=== PATIENT | female | born 1985 | race Caucasian/White ===

== ENCOUNTER 2018-05-17 21:48 | Emergency (ER) | payer MEDICAID ==
[2018-05-18] MEDS ORDERED: LIDOCAINE 1% INJ-PF (10 MG/ML) 30 ML SDV INJ ONE (01:03)
[2018-05-18] MEDS ORDERED: CEPHALEXIN 500 MG CAPSULE PO ONE (01:05)
[2018-05-18] MEDS ORDERED: HYDROCODONE/ACETAMINOPHEN 5-325 MG (6 TAB/ER DISP) PO PRN (01:05)
[2018-05-18] MEDS ORDERED: SULFAMETHOXAZOLE/TRIMETHOPRIM 800-160 MG TABLET PO ONE (01:05)
--- NOTE | 2018-05-18 01:09 | ER Document Report ---
HPI - HPI Time Seen by Provider: 05/18/18 01:03 Pain Level: 5 Notes: Patient is a 32-year-old female with a history of previous staph infections who presents to the emergency department complaining of abscess and possible staph infection to her mid lower back that has been developing over the last 2 days. Patient states that she did try to break it open on her own, but it did not work very well for her. She has noticed increased pain, redness, and swelling over t he last day. Denies drug allergies. No history of MRSA. Denies IV drug abuse or any recent back injections. Patient states that she feels well aside from the pain to the skin of her mid low back. She is eating and drinking without difficulty. She is urinating normally and having normal bowel movements. Denies any headache, fever, neck pain/stiffness, URI, sore throat, chest pain, palpitations, syncope, cough, shortness of breath, wheeze, dyspnea, abdominal pain, nausea/vomiting/diarrhea, urinary retention, dysuria, hematuria, loss of control of bowel or bladder, numbness/tingling, saddle anesthesia, muscle paralysis/weakness. Denies known insect bite. - ROS Systems Reviewed and Negative: Yes All other systems reviewed and negative - REPRODUCTIVE Reproductive: DENIES: : Past Medical History - Social History Smoking Status: Never Smoker Family History: Reviewed & Not Pertinent Vertical Provider Document - CONSTITUTIONAL Agree With Documented VS: Yes Notes: PHYSICAL EXAMINATION: GENERAL: Well-appearing, well-nourished and in no acute distress. NECK: Normal range of motion, supple without lymphadenopathy. No rigidity/meningismus. LUNGS: Breath sounds clear to auscultation bilaterally and equal. No wheezes rales or rhonchi. HEART: Regular rate and rhythm without murmurs, rubs, gallops. ABDOMEN: Soft, nontender, nondistended abdomen. No guarding, no rebound. Normal bowel sounds present. No CVA tenderness bilaterally. Musculoskeletal: FROM to passive/active. Strength 5+/5. Back: FROM. Strength 5+/5. No vertebral point tenderness. No foot drop. Extremities: No cyanosis, clubbing, or edema b/l. Peripheral pulses 2+. Capillary refill less than 3 seconds. NEUROLOGICAL: Normal speech, normal gait. Normal sensory, motor exams PSYCH: Normal mood, normal affect. SKIN: There is a 2.5cm abscess with fluctuance noted to the mid lower back with surrounding erythema and induration. + associated tenderness. - INFECTION CONTROL TRAVEL OUTSIDE OF THE [place] IN LAST 30 DAYS: No Course - Re-evaluation Re-evalutation: 05/18/18 01:46 Patient is an afebrile, well-hydrated, 32-year-old female who presents the emergency department with an abscess to her lower mid back requiring incision and drainage. Vitals are acceptable without significant tachycardia, tachypnea, or hypoxia. PE is otherwise unremarkable. Patient is nontoxic-appearing and is tolerating p.o. without difficulty. Wound was thoroughly irrigated and cleansed. Incision and drainage was performed successfully without any complications and packing was placed. Wound dressing was placed and wound instructions reviewed. Wound culture was obtained. No further labs or imaging warranted. Low suspicion for any sepsis, meningitis, SJS, necrotizing fasciitis, or other systemic emergent condition at this time. Patient to monitor symptoms for any acute changes and seek medical attention if so. Patient was given first dose of Keflex and Bactrim here in the emergency department. Prescriptions to go home written. Recheck with your PCM in 2-3 days. Consider consult with the general surgeon. Return to the ED with any worsening/concerning symptoms as reviewed. Patient is in agreement. - Vital Signs Vital signs: Temp Pulse Resp BP Pulse Ox 98.2 F 80 16 121/70 99 05/17/18 22:26 05/17/18 22:26 05/17/18 22:26 05/17/18 22:26 05/17/18 22:26 Procedures - Incision and Drainage Lower Back Time completed: 01:42 - No complications and patient tolerated procedure well Type: Simple Anesthetic type: 1% Lidocaine mL's of anesthetic: 8 Blade size: 11 I&D procedure: Iodoform packing placed, Sterile dressing applied, Other - Chlorhexidine/saline Incision Method: Incision made by scalpel Amount/type of drainage: Abundant purulent Discharge - Discharge Clinical Impression: Abscess Condition: Stable Disposition: HOME, SELF-CARE Instructions: Cephalexin ([facility]), Trimethoprim-Sulfa ([facility]), Post Incision and Drainage, Abscess ([facility]) Additional Instructions: Do not shower or bathe for 24 hours. After 24 hours you may shower but no submersion of the wound under water. Keep the original dressing on the wound for 24 hours unless the drainage soaks through. Change the dressing daily thereafter and use a small amount of triple antibiotic ointment over the open wound. See your PCM in 2-3 days for recheck and continue direction for wound packing. Monitor for any signs of worsening pain or redness, streaks, and/or fever. Return to the ED if noticing any of the above symptoms or as needed. Take medications as directed. Prescriptions: Cephalexin Monohydrate [Keflex 500 mg Capsule] 500 mg PO TID #30 capsule Sulfamethoxazole/Trimethoprim [Bactrim Ds Tablet] 1 each PO BID #20 tablet Forms: Return to Work Referrals: JAZMINE VALENTIN MD [ACTIVE STAFF] - Follow up as needed
[2018-05-18 02:06] VITALS: BP 125/78
== END 2018-05-18 02:07 | disposition home or self-care (01) ==
LOC: ER 21:48
DX: L02.212 Cutaneous abscess of back [any part, except buttock and flank] (principal)
CPT/HCPCS: 99283; 87070; 87205; 87075; 87077; 87186; 10060; A6266; J3490 ×2

== ENCOUNTER 2020-02-02 10:36 | Emergency (ER) | payer SELFPAY ==
[2020-02-02 10:50] VITALS: BP 135/81
[2020-02-02] MEDS ORDERED: DEXAMETHASONE SOD PHOS INJ 10 MG/1 ML VIAL IM ONE (10:53)
--- NOTE | 2020-02-02 10:53 | ER Document Report ---
ED Eye Complaint - General Chief Complaint: Allergic Reaction Stated Complaint: LEFT EYELID IRRITATION,SWELLING Time Seen by Provider: 02/02/20 10:53 TRAVEL OUTSIDE OF THE [place] IN LAST 30 DAYS: No - HPI Notes: 34-year-old female presents to ED for evaluation of allergic reaction starting last night. 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 She notes erythema and swelling along with the bilateral nasolabial region as well as her left upper eyelid. Denies any epoxy into her eye. Patient states that she is n ot having any difficulties breathing or swallowing. Has not taken any medications prior to arrival. Denies a history of allergic reactions. Denies any allergies to medications. Denies any other complaints. - Related Data Allergies/Adverse Reactions: adhesive Adverse Reaction (Verified 02/02/20 10:49) Past Medical History - Social History Smoking Status: Never Smoker Chew tobacco use (# tins/day): No Frequency of alcohol use: None Drug Abuse: None Family History: Reviewed & Not Pertinent Renal/ Medical History: Denies: Hx Peritoneal Dialysis Review of Systems - Review of Systems Notes: Constitutional: Negative for fever. HENT: Negative for sore throat. Eyes: Negative for visual changes. Cardiovascular: Negative for chest pain. Respiratory: Negative for shortness of breath. Gastrointestinal: Negative for abdominal pain, vomiting or diarrhea. Genitourinary: Negative for dysuria. Musculoskeletal: Negative for back pain. Skin: Positive for rash to the bilateral facial region. Neurological: Negative for headaches, weakness or numbness. 10 point ROS negative except as marked above and in HPI. Physical Exam - Vital signs Vitals: Temp Pulse Resp BP Pulse Ox 97.9 F 100 18 135/81 H 97 02/02/20 10:49 02/02/20 10:49 02/02/20 10:49 02/02/20 10:49 02/02/20 10:49 General: No acute distress. Alert and oriented x3. Sitting comfortably in a stretcher. Skin: No jaundice, pallor, petechiae, or rashes. Warm and dry. Emesis wheals to the bilateral nasal regions as well as left upper eyelid. Minor tenderness to palpation. HEENT: Normocephalic, atraumatic. Pupils are equal round reactive to light and accommodation. Extraocular movements are intact. TMs without erythema or bulging. Canals are clear. Nares patent without any discharge. Teeth in good condition. Pharynx without erythema, edema, or exudates. No Drooling or dyspnea Mucous membranes moist. No tonsillar enlargement. Uvula is midline. Airway is patent. Neck: Supple with no lymphadenopathy. Full range of motion. Heart: Regular rate and rhythm. S1,S2. No murmurs, rubs, or gallops. Lungs: Clear to auscultation bilaterally. No wheezes, rhonchi, rales. Equal chest expansion. No retractions. Neuro: GCS 15. Moving all extremities without discomfort. Course - Re-evaluation Re-evalutation: 02/02/20 11:15 34-year-old female presents to ED for evaluation of allergic reaction. Patient touched her face with epoxy yesterday. She does have erythematous wheals present to the face. There is no drooling or dyspnea. On physical exam, patient is resting comfortably. Able to handle her own secretions. I do see the wheals present. Patient will be given a shot of Decadron and continued on 3 days of prednisone. She is encouraged to wear her respirator and to abstain from use of epoxy for the next day. Patient is also encouraged to take Benadryl at home as needed. Advised to return for any new or worsening symptoms and follow-up closely with her primary care provider. Understands course of management and is agreeable with care plan. - Vital Signs Vital signs: Temp Pulse Resp BP Pulse Ox 97.9 F 100 18 135/81 H 97 02/02/20 10:49 02/02/20 10:49 02/02/20 10:49 02/02/20 10:49 02/02/20 10:49 - Laboratory Results Critical Laboratory Results Reviewed: No Critical Results - Radiology Results Critical Radiology Results Reviewed: No Critical Results Discharge - Discharge Clinical Impression: Allergic reaction Qualifiers: Encounter type: initial encounter Qualified Code(s): T78.40XA - Allergy, unspecified, initial encounter Condition: Stable Disposition: HOME, SELF-CARE Instructions: Contact Dermatitis ([facility]) Prescriptions: Prednisone [Deltasone 20 mg Tablet] 1 tab PO DAILY 3 Days #3 tablet
== END 2020-02-02 11:07 | disposition home or self-care (01) ==
LOC: ER 10:36
DX: L50.0 Allergic urticaria (principal)
CPT/HCPCS: 99284; 96372; J1100

== ENCOUNTER 2020-03-07 10:36 | Emergency (ER) | payer SELFPAY ==
[2020-03-07] MEDS ORDERED: FAMOTIDINE INJ/PF 20 MG/2 ML SDV IV ONE (11:26)
[2020-03-07] MEDS ORDERED: DIPHENHYDRAMINE HCL 50 MG/ML VIAL IV ONE (11:26)
[2020-03-07] MEDS ORDERED: METHYLPREDNISOLONE INJ 125 MG/2 ML SDV IV ONE (11:26)
--- NOTE | 2020-03-07 11:27 | ER Document Report ---
ED General - General Chief Complaint: Allergic Reaction Stated Complaint: POSSIBLE ALLERGIC REACTION Time Seen by Provider: 03/07/20 11:19 Primary Care Provider: ALEXEY BOBBY MD [COMMUNITY BASED STAFF] - Follow up as needed TRAVEL OUTSIDE OF THE [place] 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 Patient states that she was wearing a gas mask but she noticed the rash starting yesterday. Patient states she has had a previous reaction with epoxy's in the past which required her to come to the emergency room and obtain medications. Patient denies any difficulty swallowing, shortness of breath, tongue swelling, blurred vision, double vision, loss of vision, chest pain, nausea, vomiting, diarrhea, headaches, abdominal pain, dizziness, lightheadedness. patient states she did take [id number] Benadryl without relief. Last menstrual cycle 02/07/2020. G4, P4. Patient does not wear contacts or glasses - Related Data Allergies/Adverse Reactions: adhesive Adverse Reaction (Verified 02/02/20 10:49) Past Medical History - General Information source: Patient - Social History Smoking Status: Unknown if Ever Smoked Family History: Reviewed & Not Pertinent Renal/ Medical History: Denies: Hx Peritoneal Dialysis Review of Systems - Review of Systems Constitutional: No symptoms reported EENT: No symptoms reported Cardiovascular: No symptoms reported Respiratory: No symptoms reported Gastrointestinal: No symptoms reported Genitourinary: No symptoms reported Female Genitourinary: No symptoms reported Musculoskeletal: No symptoms reported Skin: See HPI Hematologic/Lymphatic: No symptoms reported Neurological/Psychological: No symptoms reported Physical Exam - Vital signs Vitals: Temp Pulse Resp BP Pulse Ox 98.7 F 102 H 14 125/89 H 97 03/07/20 10:45 03/07/20 10:45 03/07/20 10:45 03/07/20 10:45 03/07/20 10:45 - Notes Notes: MEDICATIONS: I agree with the patient medications as charted by the RN. ALLERGIES: I agree with the allergies as charted by the RN. PAST MEDICAL HISTORY/PAST SURGICAL HISTORY: Reviewed and agree as charted by RN. SOCIAL HISTORY: Reviewed and agree as charted by RN. FAMILY HISTORY: No significant familial comorbid conditions directly related to patient complaint EXAM: Reviewed vital signs as charted by RN. PHYSICAL EXAMINATION: reviewed vital signs by RN GENERAL: Well-appearing, well-nourished and in no acute distress. HEAD: Atraumatic, normocephalic. EYES: Pupils equal round and reactive to light, extraocular movements intact, conjunctiva are normal. ENT: Nares patent, oropharynx clear without exudates. Moist mucous membranes. Tongue midline, no swelling. Uvula midline. NECK: Normal range of motion, supple without lymphadenopathy LUNGS: Breath sounds clear to auscultation bilaterally and equal. No wheezes rales or rhonchi. HEART: Regular rate and rhythm without murmurs ABDOMEN: Soft, nontender, nondistended abdomen. No guarding, no rebound. No masses appreciated. Female : deferred Musculoskeletal: Normal range of motion, no pitting or edema. No cyanosis. NEUROLOGICAL: Cranial nerves grossly intact. Normal speech, normal gait. Normal sensory, motor exams PSYCH: Normal mood, normal affect. SKIN: Warm, Dry, normal turgor, no rashes or lesions noted. Macular papular rash to bilateral cheeks and forehead. No open wounds or drainage. Course - Re-evaluation Re-evalutation: 03/07/20 16:41 Afebrile, vital stable in no distress. Nurses notes reviewed. Patient given IV 125 Solu-Medrol, 50 mg of IV Benadryl and 20 mg of Pepcid IV at 1130. On reevaluation at 1315, patient states she feels much better, she does not feel any itchy or redness to her face. Discussed with patient to avoid using any epoxy in the future as she does have a reaction regardless of the protection that she uses. Patient sent home with a prescription for prednisone, Benadryl and Pepcid. Patient denies any shortness of breath, difficulty breathing, swelling of tongue, pain with breathing, eye irritation, etc. after performing a Medical Screening Examination, I estimate there is LOW risk for a RETAINED CORNEAL or LID FOREIGN BODY, DEEP SPACE INFECTION (e.g., ORBITAL CELLULITIS OR ABSCESS), ACUTE GLAUCOMA, PENETRATING GLOBE INJURY, RETINAL DETACHMENT, or MENINGITIS thus I consider the discharge disposition reasonable. I have reevaluated this patient multiple times and no significant life threatening changes are noted. Also, there is no evidence or peritonitis, sepsis, or toxicity. The patient and I have discussed the diagnosis and risks, and we agree with discharging home with outpatient follow-up with the understanding that symptoms and presentations can change. We also discussed returning to the Emergency Department immediately if new or worsening symptoms occur. We have discussed the symptoms which are most concerning (e.g., changing or worsening pain, vision changes, neck stiffness or fever) that necessitate immediate return. 03/07/20 16:43 - Vital Signs Vital signs: Temp Pulse Resp BP Pulse Ox 98.0 F 94 16 112/60 99 03/07/20 13:29 03/07/20 13:29 03/07/20 13:29 03/07/20 13:29 03/07/20 13:29 - Laboratory Results Critical Laboratory Results Reviewed: No Critical Results - Radiology Results Critical Radiology Results Reviewed: No Critical Results Discharge - Discharge Clinical Impression: Allergic reaction Condition: Stable Disposition: HOME, SELF-CARE Instructions: Acute Allergic Reaction ([facility]) Additional Instructions: You were seen today for hives. This can be either allergic, autoimmune, or environmental in origin. You can continue to take cetirizine 10mg up to 3 times daily as needed for itching. Apply the topical steroid cream that has been prescribed as needed for severe inching. IF YOU DEVELOP DIFFICULTY BREATHING, SPREADING OF HIVES, VOMITING, LIGHTHEADEDNESS, IMMEDIATELY AND CALL 911. Please follow-up with your primary care physician in the next 1-2 days. Return immediately for any new or worsening symptoms. Follow up with primary care provider, call tomorrow to make followup appointment. Prescriptions: Famotidine [Acid Controller] 20 mg PO DAILY #10 tablet Diphenhydramine HCl [Benadryl 50 mg Capsule] 1 cap PO Q6 PRN #14 capsule PRN Reason: Prednisone [Deltasone 20 mg Tablet] 3 tab PO DAILY 5 Days #15 tablet Referrals: ALEXEY BOBBY MD [COMMUNITY BASED STAFF] - Follow up as needed
[2020-03-07 13:31] VITALS: BP 112/60
== END 2020-03-07 13:34 | disposition home or self-care (01) ==
LOC: ER 10:36
DX: T78.40XA Allergy, unspecified, initial encounter (principal); X58.XXXA Exposure to other specified factors, initial encounter
CPT/HCPCS: 99284; 96374; 96375; J1200; J2930; S0028